=== PATIENT | female | born 1965 | race African-American/Black ===

== ENCOUNTER 2022-12-23 16:44 | Emergency (ER) | payer OTHER ==
[~2022-12-23] VITALS: Ht 170.2 cm; Wt 70.5 kg
[2022-12-23 16:53] VITALS: O2SAT 98
[2022-12-23 17:25] LABS: HEMATOCRIT. 35.8 % (36.0-48.0); HEMOGLOBIN. 10.7 g/dL (12.0-16.0); MEAN CORPUSCULAR HEMOGLOBIN 30.3 pg (28.0-32.0); MEAN CORPUSCULAR VOLUME 100.7 fL (81.0-99.0); MEAN PLATELET VOLUME 9.3 fl (7.4-10.4); PLATELET 84 x1000/uL (130-400); RED BLOOD CELL COUNT 3.55 mill/uL (4.2-5.4); RED CELL DISTRIBUTION WIDTH 17.4 % (11.6-14.6); WHITE BLOOD COUNT 4.1 x1000/uL (4.5-11.0)
[2022-12-23 17:31] LABS: INR 1.3; PROTHROMBIN TIME 13.6 sec (9.6-11.0)
[2022-12-23 17:32] LABS: DIFFERENTIAL COMMENT 1
[2022-12-23 17:35] LABS: CHLORIDE 109 mEq/L (98-107); INDEX HEMOLYSI 1 (1-3); INDEX ICTERIC 1 (1-4); INDEX LIPEMIC 1 (1-3); POTASSIUM 4.5 mEq/L (3.5-5.1); SODIUM 139 mEq/L (136-145)
[2022-12-23 17:44] LABS: ALANINE AMINOTRANSFERASE 17 IU/L (13-61); ALBUMIN 2.6 g/dL (3.4-5.0); ASPARTATE AMINOTRANSFERASE 23 IU/L (15-37); BILIRUBIN TOTAL 1.5 mg/dL (0.1-1.0); CALCIUM 8.7 mg/dL (8.5-10.1); CARBON DIOXIDE 16 mEq/L (21-32); GLUCOSE 113 mg/dL (70-105); PROTEIN TOTAL 6.8 g/dL (6.0-8.3)
[2022-12-23 17:50] LABS: UREA NITROGEN BLOOD 95 mg/dL (7-21)
[2022-12-23 17:51] LABS: CREATININE 14.7 mg/dL (0.6-1.3); TROPONIN I HIGH SENSITIVITY 427 ng/L (<54)
[2022-12-23 18:02] LABS: PLATELET ESTIMATE DECREASED
[2022-12-23 18:03] LABS: ANISOCYTOSIS 1+; OVALOCYTES 1+
[2022-12-23 18:15] VITALS: BP 121/84; PULSE 68; RESP 18; TEMP 98.4
== END 2022-12-23 19:14 | disposition left against medical advice (07) ==
LOC: ER 16:44
DX: T82.49XA Other complication of vascular dialysis catheter, initial encounter (principal); I12.0 Hypertensive chronic kidney disease with stage 5 chronic kidney disease or end stage renal disease; N18.6 End stage renal disease; Z99.2 Dependence on renal dialysis; J44.9 Chronic obstructive pulmonary disease, unspecified; E87.70 Fluid overload, unspecified; R77.8 Other specified abnormalities of plasma proteins
CPT/HCPCS: 36415; 71045; 80053; 84484; 85025; 93005; 99285

== ENCOUNTER 2022-12-24 12:17 | Emergency (ER) | payer OTHER ==
[~2022-12-24] VITALS: Ht 170.2 cm; Wt 68.0 kg
[2022-12-24 12:31] VITALS: TEMP 98.4; O2SAT 100
[2022-12-24] MEDS ORDERED: ALTEPLASE 2MG/VIAL ITC ONE (13:15)
[2022-12-24 13:40] LABS: HEMATOCRIT. 34.3 % (36.0-48.0); HEMOGLOBIN. 10.9 g/dL (12.0-16.0); MEAN CORPUSCULAR HEMOGLOBIN 30.6 pg (28.0-32.0); MEAN CORPUSCULAR HGB CONC 31.8 g/dL (31.0-37.0); MEAN CORPUSCULAR VOLUME 96.1 fL (81.0-99.0); MEAN PLATELET VOLUME 9.8 fl (7.4-10.4); PLATELET 94 x1000/uL (130-400); RED BLOOD CELL COUNT 3.57 mill/uL (4.2-5.4); RED CELL DISTRIBUTION WIDTH 17.5 % (11.6-14.6)
[2022-12-24 13:47] LABS: DIFFERENTIAL COMMENT 1
[2022-12-24 14:10] LABS: INR 1.2; PARTIAL THROMBOPLASTIN TIME 30.5 sec (23.4-31.0); PROTHROMBIN TIME 13.2 sec (9.6-11.0)
[2022-12-24 14:18] LABS: CHLORIDE 107 mEq/L (98-107); INDEX HEMOLYSI 2 (1-3); INDEX ICTERIC 1 (1-4); INDEX LIPEMIC 1 (1-3); SODIUM 138 mEq/L (136-145)
[2022-12-24 14:26] LABS: NUCLEATED RED BLOOD CELLS 2 /100 WBC
[2022-12-24 14:27] LABS: ANISOCYTOSIS 1+; PLATELET ESTIMATE DECREASED
[2022-12-24 14:41] LABS: ALBUMIN 2.7 g/dL (3.4-5.0); ASPARTATE AMINOTRANSFERASE 24 IU/L (15-37); BILIRUBIN TOTAL 1.5 mg/dL (0.1-1.0); CARBON DIOXIDE 19 mEq/L (21-32); GLUCOSE 83 mg/dL (70-105); PROTEIN TOTAL 7.1 g/dL (6.0-8.3)
[2022-12-24 14:54] LABS: UREA NITROGEN BLOOD 89 mg/dL (7-21)
[2022-12-24 14:55] LABS: CREATININE 15.1 mg/dL (0.6-1.3)
[2022-12-24 16:32] LABS: ALANINE AMINOTRANSFERASE 17 IU/L (13-61); CALCIUM 8.6 mg/dL (8.5-10.1)
[2022-12-24 16:39] LABS: NT PRO B-TYPE NATRIURETIC PEP > 175000 pg/mL (5-125)
[2022-12-24 17:18] VITALS: BP 117/81; PULSE 74; RESP 18
== END 2022-12-24 18:38 | disposition left against medical advice (07) ==
LOC: ER 12:17 → EDBEDREQTM 16:53 → EDBEDREQ 16:53 → ER 18:38 → CANBEDREQ 18:42
DX: I12.9 Hypertensive chronic kidney disease with stage 1 through stage 4 chronic kidney disease, or unspecified chronic kidney disease (principal); N18.9 Chronic kidney disease, unspecified; E87.70 Fluid overload, unspecified; R18.8 Other ascites; J90 Pleural effusion, not elsewhere classified; J81.1 Chronic pulmonary edema
CPT/HCPCS: 80053; 83880; 85025; 85610; 85730; 36415; 71045; 93005; 99285; Z7610 ×2; J2997